=== PATIENT | female | born 1975 | race Caucasian/White ===

== ENCOUNTER 2020-08-04 11:41 | Emergency (ER) | payer BC, SELFPAY ==
[2020-08-04 13:06] VITALS: BP 150/95; PULSE 97; RESP 16; TEMP 36.6; O2SAT 98; BMI 24.0
--- NOTE | 2020-08-04 13:09 | HMH.EDUTC ---
[facility] [place] Clinical Impression: Encounter for laboratory testing for COVID-19 virus, Exposure to COVID-19 virus Disposition: Home, Self-Care Condition on Discharge: Good Instructions: DI for COVID-19 (Suspected or Confirmed ), Coronavirus Disease 2019, COVID-19: Testing and Tracing, Preventing the Spread of Coronavirus Discharge Instructions Additional Instructions: *Monitor Temp, Over the counter Motrin or Tylenol as directed/as needed Tylenol every 4 hours and Motrin every 6 hours (as long as your family doctor has told you that you can take it) for fever or pain. and straight to ER if unable to lower temp less than 101.0 after medication given *Warm salt water gargles may help to soothe the throat *Throat Lozenges *Warm fluids like tea with honey may help to soothe the throat *Sleep elevated *Humidifier/Vaporizer *Make sure that you are drinking plenty of fluids to keep yourself hydrated Make sure you are eating healthy and increase intake of vitamin C Follow up IMMEDIATELY for new or worsening symptoms or no Noticeable improvement over the next 48-72 hours. 911 for difficulty breathing or swallowing You were tested for today for COVID19 your test result should be back in the next 24-48 hours, you may call to the [facility] to see if your test results are back in the next 48 hours [phone] [facility] hours are 9am-9pm You was given a handout with instructions for Self Quarantine and Self isolation for while you wait on test results and what to do if they are positive If you are positive the Health Dept will be contacting you also Referrals: Kimberlee Haddad [Primary Care Provider] - As needed Forms: Work/School Release Time of Disposition: 13:12 Medical Decision Making - Rogelio Inquiry Pt receiving controlled substance: No Rogelio was queried for this patient: No Vital Signs: 08/04/20 13:06 Temperature 98 F Temperature Source Oral Pulse Rate [Right] 97 H Respiratory Rate 16 Blood Pressure [Right Arm] 150/95 H Blood Pressure Mean [Right Arm] 113 Blood Pressure Source [Right Arm] Automatic Cuff Blood Pressure Position [Right Arm] Sitting 02 Sat by Pulse Oximetry 98 Oxygen Delivery Method Room Air Orders (Tests/Meds): ORDERS Category Date Time Status Covid-19 Nasal PCR ([facility]) Routine Lab 08/04/20 12:30 Received [facility] [place] HPI - General Stated complaint: cough diarrhea weakness headache Time Seen by Provider: 08/04/20 13:09 Mode of Arrival: Ambulatory Source of Information: Patient Limitations: No Limitations Description of Symptoms (Recalled from Triage Doc. by RN): want covid test. advises is positive HEENT Symptoms (Recalled from RN notes): No Resp Symptoms (Recalled from RN notes): No Skin Symptoms (Recalled from RN notes): No MS Symptoms (Recalled from RN notes): No Functional Status (Recalled from RN notes): na - History of Present Illness Provider Complaint: Patient state that she came in to get tested for COVID States that her recently tested positive State that she has had some diarrhea earlier today, body aches and headache States that she works and needed to get tested to make sure that she can return to work - Related Data Home Medications Medication Instructions Recorded Confirmed No Known Home Medications 06/07/20 06/07/20 Allergies Allergy/AdvReac Type Severity Reaction Status Date / Time iodine [IODINE] Allergy Mild Verified 06/07/20 17:17 Penicillins [PENICILLINS] Allergy Mild Verified 06/07/20 17:17 Sulfa (Sulfonamide Allergy Mild Verified 06/07/20 17:17 Antibiotics) [SULFA (SULFONAMIDE ANTIBIOTICS)] ciprofloxacin [From Cipro] AdvReac Mild Verified 06/07/20 17:17 - Worker's Comp Is this a Worker's Comp case?: No [facility] History - Hepatitis A Screen Drug use history?: No High risk sexual behaviors?: No History of sexually transmitted infection?: No Currently employed?: No Childcare worker?: No Do you have indoor plumbing?: Y
[2020-08-04 13:14] VITALS: BP 152/90; PULSE 95; RESP 16; TEMP 36.7; O2SAT 98
== END 2020-08-04 13:15 | disposition home or self-care (01) ==
PROVIDERS: Emergency Provider Nurse Practitioner; PCP Family Medicine
DX: U07.1 COVID-19 (principal); F41.9 Anxiety disorder, unspecified; F17.210 Nicotine dependence, cigarettes, uncomplicated; Z88.0 Allergy status to penicillin; Z88.2 Allergy status to sulfonamides
CPT/HCPCS: 99202; G0463; U0003